=== PATIENT | female | born 1990 | race Caucasian/White ===

== ENCOUNTER 2020-10-29 18:35 | Inpatient (IN) | payer OTHER ==
[~2020-10-29] VITALS: Ht 167.6 cm; Wt 75.0 kg
[~2020-10-29 18:35] MED LIST: IBUP800 PO
[2020-10-29] MEDS ORDERED: ONE-A-DAY PREN1 EAC1 PO (19:14)
[2020-10-29 19:30] LABS: BASOPHILS ABSOLUTE AUTO 0.04 K/mm3 (0.00-0.23); BASOPHILS PERCENT AUTO 1 % (0-2); EOSINOPHILS ABSOLUTE AUTO 0.05 K/mm3 (0.00-0.68); EOSINOPHILS PERCENT AUTO 1 % (0-6); Hemoglobin 13.9 g/dL (11.5-16.0); IMMATURE GRAN ABSOLUTE AUTO 0.03 K/mm3 (0.00-0.10); IMMATURE GRAN PERCENT AUTO 0 % (0-1); LYMPHOCYTES ABSOLUTE AUTO 1.95 K/mm3 (0.84-5.20); LYMPHOCYTES PERCENT AUTO 22 % (21-46); MONOCYTES ABSOLUTE AUTO 0.38 K/mm3 (0.16-1.47); MONOCYTES PERCENT AUTO 4 % (4-13); Mean Corpuscular HGB 30.5 pg (26.0-34.0); Mean Corpuscular HGB Conc 33.1 g/dL (31.5-36.5); Mean Corpuscular Volume 92 fL (80-100); Mean Platelet Volume 9.9 fL (9.1-12.4); NEUTROPHILS ABSOLUTE AUTO 6.39 K/mm3 (1.96-9.15); NEUTROPHILS PERCENT AUTO 72 % (41-73); Platelet Count 184 K/mm3 (150-400); RDW Coefficient Variation 13.3 % (11.7-14.2); RDW Standard Deviation 45.1 fL (35.1-46.3); Red Blood Cell Count 4.55 M/mm3 (3.80-5.20); White Blood Cell Count 8.84 K/mm3 (4.00-11.30)
[2020-10-29 20:59] LABS: Influenza A, PCR Negative (NEGATIVE); Influenza B, PCR Negative (NEGATIVE); Resp Syncytial Virus, PCR Negative (NEGATIVE); SARS-Cov-2 (COVID-19) PCR, MMC Negative (NEGATIVE)
[2020-10-30 05:59] LABS: BASOPHILS ABSOLUTE AUTO 0.04 K/mm3 (0.00-0.23); BASOPHILS PERCENT AUTO 0 % (0-2); EOSINOPHILS ABSOLUTE AUTO 0.04 K/mm3 (0.00-0.68); EOSINOPHILS PERCENT AUTO 0 % (0-6); Hematocrit 38.5 % (33.0-51.0); Hemoglobin 12.6 g/dL (11.5-16.0); IMMATURE GRAN ABSOLUTE AUTO 0.04 K/mm3 (0.00-0.10); IMMATURE GRAN PERCENT AUTO 0 % (0-1); LYMPHOCYTES ABSOLUTE AUTO 1.81 K/mm3 (0.84-5.20); LYMPHOCYTES PERCENT AUTO 15 % (21-46); MONOCYTES ABSOLUTE AUTO 0.63 K/mm3 (0.16-1.47); MONOCYTES PERCENT AUTO 5 % (4-13); Mean Corpuscular HGB 30.1 pg (26.0-34.0); Mean Corpuscular HGB Conc 32.7 g/dL (31.5-36.5); Mean Corpuscular Volume 92 fL (80-100); NEUTROPHILS ABSOLUTE AUTO 9.17 K/mm3 (1.96-9.15); NEUTROPHILS PERCENT AUTO 78 % (41-73); Platelet Count 186 K/mm3 (150-400); RDW Coefficient Variation 13.1 % (11.7-14.2); Red Blood Cell Count 4.19 M/mm3 (3.80-5.20); White Blood Cell Count 11.73 K/mm3 (4.00-11.30)
--- NOTE | 2020-10-30 09:49 | NUR ---
RN ROUNDED TO HELP W/ . INSTRUCT/DEMO WIDENING LATCH, CORRECT POSITIONING AND NIPPLE SHAPE AFTER FEEDS. NB LATCHED AND IS FEEDING WELL. PT STATES LATCH IS NOT PAINFUL. WILL ATTEMPT TO ROUND AGAIN TODAY.
[2020-10-30] MEDS ORDERED: IBUP800 PO (13:21)
--- NOTE | 2020-10-30 19:16 | NUR ---
REPORT TO NATALIO MANJARREZ
--- NOTE | 2020-10-30 23:04 | NUR ---
PT ALREADY HAS CODE FOR PATIENT PORTAL. INSTRUCTIONS FOR ACCESS GIVEN.
== END 2020-10-30 23:00 | disposition home or self-care (01) | DRG 807 ==
LOC: OBS 18:35 → BC 18:39 → OBS 19:06 → BC 19:08
PROVIDERS: ADMIT Nurse Practitioner Obstetrics & Gynecology
PROC: 10E0XZZ Delivery of Products of Conception, External Approach (ICD-10-PCS; principal; 2020-10-29)
PROC: 0HQ9XZZ Repair Perineum Skin, External Approach (ICD-10-PCS; 2020-10-29)
DX: O70.0 First degree perineal laceration during delivery (principal); Z37.0 Single live birth; Z3A.40 40 weeks gestation of pregnancy; Z20.828 Contact with and (suspected) exposure to other viral communicable diseases
CPT/HCPCS: 0241U; 36415; 85025; 86850; 86900; 86901; 99213; J1885; J2210; J2590; J7120

== ENCOUNTER → 2023-07-08 | Outpatient (CLI) | payer OTHER ==
[~2023-07-08] MED LIST changes: +ONE-A-DAY PREN1 EAC1 PO
[2023-07-08 16:16] LABS: Source, Urine Clean Catch
[2023-07-08 17:19] LABS: BASOPHILS ABSOLUTE AUTO 0.05 K/mm3 (0.00-0.23); BASOPHILS PERCENT AUTO 1 % (0-2); EOSINOPHILS ABSOLUTE AUTO 0.14 K/mm3 (0.00-0.68); EOSINOPHILS PERCENT AUTO 2 % (0-6); Hematocrit 37.4 % (33.0-51.0); IMMATURE GRAN ABSOLUTE AUTO 0.01 K/mm3 (0.00-0.10); IMMATURE GRAN PERCENT AUTO 0 % (0-1); LYMPHOCYTES ABSOLUTE AUTO 1.37 K/mm3 (0.84-5.20); LYMPHOCYTES PERCENT AUTO 21 % (21-46); MONOCYTES ABSOLUTE AUTO 0.34 K/mm3 (0.16-1.47); MONOCYTES PERCENT AUTO 5 % (4-13); Mean Corpuscular HGB Conc 34.8 g/dL (31.5-36.5); Mean Corpuscular Volume 89 fL (80-100); Mean Platelet Volume 10.6 fL (9.1-12.4); NEUTROPHILS ABSOLUTE AUTO 4.56 K/mm3 (1.96-9.15); NEUTROPHILS PERCENT AUTO 70 % (41-73); Platelet Count 181 K/mm3 (150-400); RDW Coefficient Variation 12.4 % (11.7-14.2); RDW Standard Deviation 40.6 fL (35.1-46.3); Red Blood Cell Count 4.19 M/mm3 (3.80-5.20); White Blood Cell Count 6.47 K/mm3 (4.00-11.30)
[2023-07-08 18:05] LABS: Appearance, Urine Clear (Clear); Bilirubin, Urine Neg (Neg); Blood, Urine Neg (Neg); Color, Urine Yellow (P-Yellow); Glucose Qualitative, Urine Neg (Neg); Ketones, Urine Neg (Neg); Leukocyte Esterase, Urine Neg (Neg); Nitrite, Urine Neg (Neg); Protein, Urine 1+ (Neg); Urobilinogen, Urine NORM (Normal)
[2023-07-10 05:08] LABS: HBSAG SCREEN Negative (Negative)
[2023-07-11 05:09] LABS: HIV AB/P24 AG SCREEN Non Reactive (Non Reactive)
== END | disposition home or self-care (01) ==
LOC: LAB SHORT 16:06 → LAB 16:06
PROVIDERS: Registered Nurse Community Health
DX: Z34.91 Encounter for supervision of normal pregnancy, unspecified, first trimester (principal); Z3A.00 Weeks of gestation of pregnancy not specified
CPT/HCPCS: 80055; 84443; 84702; 86803; 87086; 87389

== ENCOUNTER → 2023-11-01 | Outpatient (CLI) | payer OTHER | END | disposition home or self-care (01) | LOC: LAB SHORT 12:05 → LAB 12:05 | DX: N39.0 Urinary tract infection, site not specified (principal) | CPT/HCPCS: 87086 ==

== ENCOUNTER 2024-02-24 21:51 | Inpatient (IN) | payer OTHER ==
[~2024-02-24] VITALS: Ht 167.6 cm; Wt 85.5 kg
[2024-02-24 22:06] VITALS: BP 128/78
[2024-02-25] VITALS (11 sets, daily range): BP systolic 108–136; BP diastolic 58–86
[2024-02-25] MEDS ORDERED: FentaNYL Citrate 50 MCG/ML 2 ML Injection IV PRN (01:20)
[2024-02-25] MEDS ORDERED: Calcium Carbonate 500 MG Tab Chew PO PRN (01:20)
[2024-02-25] MEDS ORDERED: Ondansetron HCl 2 MG / ML 2ML Vial IV PRN (01:20)
[2024-02-25] MEDS ORDERED: Acetaminophen 500 MG Tab PO PRN (01:20)
[2024-02-25] MEDS ORDERED: Ampicillin Sod 2,000 MG in NS 100 ML IV STA (01:21)
[2024-02-25] MEDS ORDERED: LR Oxytocin 20 Units 1,000 ML IV SCH ×2 (01:25→07:10)
[2024-02-25] MEDS ORDERED: Bupivacaine HCl 2.5 MG/ML 10ML P/F Injection XX SCH (01:25)
[2024-02-25] MEDS ORDERED: Lactated Ringer's 1,000 ML IV SCH ×3 (01:25→07:10)
[2024-02-25] MEDS ORDERED: ePHEDrine Sulfate 50 MG/ML 1ML Injection XX PRN (01:25)
[2024-02-25] MEDS ORDERED: Misoprostol 200 MCG Tab PR SCH (01:25)
[2024-02-25] MEDS ORDERED: Lactated Ringer's 1,000 ML IV PRN (01:25)
[2024-02-25] MEDS ORDERED: Castor Oil 59.146 ML BTL TOP SCH (01:25)
[2024-02-25] MEDS ORDERED: Methylergonovine Maleate 0.2MG / ML 1ML Amp IM SCH (01:25)
[2024-02-25] MEDS ORDERED: Oxytocin 10 Unit / ML Vial IM SCH (01:25)
[2024-02-25] MEDS ORDERED: Bupivacaine 0.5% HCl 5 MG/ML 30MLVIAL XX SCH (01:25)
[2024-02-25] MEDS ORDERED: FentaNYL 2mcg/ml-Bup 0.1% Epd 250 ML EPI PRN (01:25)
[2024-02-25] MEDS ORDERED: Lidocaine HCl 1% 30 ML SDV XX SCH (01:25)
[2024-02-25 02:15] LABS: BASOPHILS ABSOLUTE AUTO 0.05 K/mm3 (0.00-0.23); BASOPHILS PERCENT AUTO 1 % (0-2); EOSINOPHILS ABSOLUTE AUTO 0.13 K/mm3 (0.00-0.68); EOSINOPHILS PERCENT AUTO 2 % (0-6); Hematocrit 38.5 % (33.0-51.0); Hemoglobin 13.2 g/dL (11.5-16.0); IMMATURE GRAN ABSOLUTE AUTO 0.02 K/mm3 (0.00-0.10); IMMATURE GRAN PERCENT AUTO 0 % (0-1); LYMPHOCYTES ABSOLUTE AUTO 2.14 K/mm3 (0.84-5.20); LYMPHOCYTES PERCENT AUTO 26 % (21-46); MONOCYTES PERCENT AUTO 5 % (4-13); Mean Corpuscular HGB Conc 34.3 g/dL (31.5-36.5); Mean Corpuscular Volume 90 fL (80-100); Mean Platelet Volume 9.9 fL (9.1-12.4); NEUTROPHILS ABSOLUTE AUTO 5.53 K/mm3 (1.96-9.15); NEUTROPHILS PERCENT AUTO 67 % (41-73); Platelet Count 194 K/mm3 (150-400); RDW Standard Deviation 42.7 fL (35.1-46.3); Red Blood Cell Count 4.26 M/mm3 (3.80-5.20); White Blood Cell Count 8.27 K/mm3 (4.00-11.30)
[2024-02-25] MEDS ORDERED: Ampicillin Sod 1,000 MG in NS 100 ML IV SCH (06:00)
[2024-02-25] MEDS ORDERED: Docusate Sodium 100 MG Cap PO PRN (07:05)
[2024-02-25] MEDS ORDERED: Ibuprofen 400 MG Tab PO PRN (07:05)
[2024-02-25] MEDS ORDERED: Witch Hazel/Glycerin PADS TOP PRN (07:05)
[2024-02-25] MEDS ORDERED: Lanolin Cream TOP PRN (07:05)
[2024-02-25] MEDS ORDERED: Diphth,Pertuss(Acell),Tet Vac 0.5 ML VIAL IM SCH (07:10)
[2024-02-25] MEDS ORDERED: OxyCODONE 5 mg/Acetamin 325 mg TABLET PO PRN (07:10)
[2024-02-25] MEDS ORDERED: Benzocaine Topical Anesthetic Spray 60GM TOP PRN (07:10)
[2024-02-25] MEDS ORDERED: Methylergonovine Maleate 0.2MG / ML 1ML Amp IM PRN (07:10)
[2024-02-25] MEDS ORDERED: Misoprostol 200 MCG Tab PO PRN (07:10)
[2024-02-25] MEDS ORDERED: Ketorolac Tromethamine 30mg Vial IV PRN (08:00)
[2024-02-25] MEDS ORDERED: Ketorolac Tromethamine 30mg Vial IV ONE (08:00)
[2024-02-25] MEDS ORDERED: Prenatal Vit/FE Fumarate/FA 1 Tab PO SCH (09:00)
[2024-02-26 00:17] VITALS: BP 123/66
[2024-02-26 04:04] VITALS: BP 128/78
[2024-02-26 05:40] LABS: Hematocrit 34.3 % (33.0-51.0); Hemoglobin 11.6 g/dL (11.5-16.0); Mean Corpuscular HGB 31.6 pg (26.0-34.0); Mean Corpuscular HGB Conc 33.8 g/dL (31.5-36.5); Mean Corpuscular Volume 94 fL (80-100); Mean Platelet Volume 10.3 fL (9.1-12.4); Platelet Count 171 K/mm3 (150-400); RDW Coefficient Variation 13.1 % (11.7-14.2); RDW Standard Deviation 44.7 fL (35.1-46.3); Red Blood Cell Count 3.67 M/mm3 (3.80-5.20); White Blood Cell Count 9.67 K/mm3 (4.00-11.30)
[2024-02-26] MEDS ORDERED: FLU VACC QS2023-24(6MOS UP)/PF 60 MCG/0.5 ML SYRINGE IM ONE (09:55)
== END 2024-02-26 10:45 | disposition home or self-care (01) | DRG 807 ==
LOC: OBS 21:51 → BC 21:51 → OBS 02-25 01:30 → BC 02-25 01:31
PROVIDERS: ADMIT Advanced Practice Midwife
PROC: 10E0XZZ Delivery of Products of Conception, External Approach (ICD-10-PCS; principal; 2024-02-25)
DX: O48.0 Post-term pregnancy (principal); Z37.0 Single live birth; Z3A.40 40 weeks gestation of pregnancy; O99.824 Streptococcus B carrier state complicating childbirth; Z88.2 Allergy status to sulfonamides; O70.0 First degree perineal laceration during delivery
CPT/HCPCS: 36415; 59025; 85025; 85027; 87210; A9270; J0290; J1885; J7120